=== PATIENT | female | born 1970 | race African-American/Black ===

== ENCOUNTER 2016-11-25 12:52 | Emergency (ER) | payer OTHER ==
[~2016-11-25] VITALS: Ht 157.5 cm; Wt 85.0 kg
[~2016-11-25 12:52] MED LIST: B/P MED; CYCL5TAB PO; LISI-363 PO; NAPR220T95 PO; TRAM100T19 PO
[2016-11-25 13:01] VITALS: BP 131/76; PULSE 90; RESP 17; TEMP 97.8; O2SAT 100
--- NOTE | 2016-11-25 13:01 | PD ---
HPI Chief Complaint: Dizziness Time Seen by Provider: 13:01 Travel History International Travel<30 days: No Contact w/Intl Traveler<30days: No Traveled to known affect area: No History of Present Illness HPI 46-year-old female with PMH of HTN, vertigo presents to the ED for evaluation of approximately one hour history of dizziness with nausea and vomiting. The patient states that she was feeling well before this episode. She was doing chores around the house when she suddenly began to feel dizzy, as if the room was spinning. She denies fevers, chills, headache, chest pain, palpitations, shortness of breath, abdominal pain, dysuria, weakness of the extremities. She took a shower in an attempt to reduce her symptoms but was unsuccessful. She states that she took 25 mg meclizine approximately 20 minutes before arrival. She is followed by Dr. Roblero. [facility] Past Medical History Hypertension: Yes : 2 Para: 2 Social History Alcohol Use: No Tobacco Use: No Substance Use: No Allergies-Medications (Allergen,Severity, Reaction): Coded Allergies: No Known Allergies (Verified , 11/25/16) Reported Meds & Prescriptions Reported Meds & Active Scripts Active Flexeril (Cyclobenzaprine HCl) 5 Mg Tab 5-10 Mg PO Q8HR Reported Lisinopril 20 mg (Lisinopril) 20 Mg Tab 1 Tab PO BID Aleve (Naproxen Sodium) 220 Mg Tab 220 Mg PO BID Tramadol HCl ER (Tramadol HCl) 100 Mg Tab 50 Mg PO DAILY [B/P Med] Review of Systems Except as stated in HPI: all other systems reviewed are Neg Physical Exam Narrative GENERAL: Well-nourished, well-developed black female with her eyes closed. Somnolent but rouses to voice, follows commands. SKIN: Focused skin assessment warm/dry. HEAD: Normocephalic. EYES: No scleral icterus. No injection or drainage. Pupils are pinpoint bilaterally. EOMI. NECK: Supple, trachea midline. No JVD or lymphadenopathy. CARDIOVASCULAR: Regular rate and rhythm without murmurs, gallops, or rubs. RESPIRATORY: Breath sounds clear and equal bilaterally. No accessory muscle use. GASTROINTESTINAL: Abdomen soft, non-tender, nondistended. Active bowel sounds. MUSCULOSKELETAL: No cyanosis, or edema. NEUROLOGICAL: Awake and alert. Cranial nerves II through XII intact. Motor and sensory grossly within normal limits. Five out of 5 muscle strength in all muscle groups. Normal speech. BACK: Nontender without obvious deformity. No CVA tenderness. Data Data Last Documented VS Vital Signs Date Time Temp Pulse Resp B/P (MAP) Pulse Ox O2 Delivery O2 Flow Rate FiO2 11/25/16 16:38 70 16 124/72 (89) 100 11/25/16 16:00 Room Air 11/25/16 13:01 97.8 Orders Orders Electrocardiogram (11/25/16 13:24) Complete Blood Count With Diff (11/25/16 13:24) Comprehensive Metabolic Panel (11/25/16 13:24) Magnesium (Mg) (11/25/16 13:24) Ckmb (Isoenzyme) Profile (11/25/16:24) Troponin I (11/25/16:24) Act Partial Throm Time (Ptt) (11/25/16 13:24) Prothrombin Time / Inr (Pt) (11/25/16 13:24) Urinalysis - C+S If Indicated (11/25/16 13:24) Chest, Single Ap (11/25/16 13:24) Ecg Monitoring (11/25/16 13:24) Iv Access Insert/Monitor (11/25/16 13:24) Oximetry (11/25/16 13:24) Meclizine (Antivert) (11/25/16 13:30) Ondansetron Inj (Zofran Inj) (11/25/16 13:30) Sodium Chloride 0.9% Flush (Ns Flush) (11/25/16 13:30) Sodium Chlor 0.9% 1000 Ml Inj (Ns 1000 M (11/25/16 13:24) Ed Urine Pregnancytest Poc (11/25/16 13:24) Sodium Chlor 0.9% 1000 Ml Inj (Ns 1000 M (11/25/16 13:30) CKMB (11/25/16 13:50) CKMB% (11/25/16 13:50) Calcium Carbonate Chew (Tums Chew) (11/25/16 16:00) Ct Brain W/O Iv Contrast(Rout) (11/25/16 ) Labs Laboratory Tests Test 11/25/16 13:50 11/25/16 15:10 White Blood Count 7.4 TH/MM3 Red Blood Count 4.53 MIL/MM3 Hemoglobin 12.4 GM/DL Hematocrit 38.2 % Mean Corpuscular Volume 84.1 FL Mean Corpuscular Hemoglobin 27.4 PG Mean Corpuscular Hemoglobin Concent 32.5 % Red Cell Distribution Width 14.2 % Platelet Count 314 TH/MM3 Mean Platelet Volume 7.7 FL Neutrophils (%) (Auto) 71.2 % Lymphocytes (%) (Auto) 21.8 % Monocytes (%) (Auto) 4.6 % Eosinophils (%) (Auto) 1.8 % Basophils (%) (Auto) 0.6 % Neutrophils # (Auto) 5.3 TH/MM3 Lymphocytes # (Auto) 1.6 TH/MM3 Monocytes # (Auto) 0.3 TH/MM3 Eosinophils # (Auto) 0.1 TH/MM3 Basophils # (Auto) 0.0 TH/MM3 CBC Comment DIFF FINAL Differential Comment Prothrombin Time 10.7 SEC Prothromb Time International Ratio 1.0 RATIO Activated Partial Thromboplast Time 21.9 SEC Blood Urea Nitrogen 18 MG/DL Creatinine 1.14 MG/DL Random Glucose 147 MG/DL Total Protein 7.9 GM/DL Albumin 3.5 GM/DL Calcium Level 8.4 MG/DL Magnesium Level 2.3 MG/DL Alkaline Phosphatase 67 U/L Aspartate Amino Transf (AST/SGOT) 43 U/L Alanine Aminotransferase (ALT/SGPT) 27 U/L Total Bilirubin 0.3 MG/DL Sodium Level 138 MEQ/L Potassium Level 4.2 MEQ/L Chloride Level 107 MEQ/L Carbon Dioxide Level 22.5 MEQ/L Anion Gap 9 MEQ/L Estimat Glomerular Filtration Rate 62 ML/MIN Total Creatine Kinase 622 U/L Creatine Kinase MB 2.7 NG/ML Creatine Kinase MB % 0.4 % Troponin I LESS THAN 0.02 NG/ML Urine Color YELLOW Urine Turbidity CLEAR Urine pH 5.5 Urine Specific [place] 1.026 Urine Protein TRACE mg/dL Urine Glucose (UA) NEG mg/dL Urine Ketones NEG mg/dL Urine Occult Blood NEG Urine Nitrite NEG Urine Bilirubin NEG Urine Urobilinogen LESS THAN 2.0 MG/DL Urine Leukocyte Esterase SMALL Urine RBC LESS THAN 1 /hpf Urine WBC 8 /hpf Urine Squamous Epithelial Cells <1 /hpf Urine Bacteria RARE /hpf Urine Mucus FEW /lpf Microscopic Urinalysis Comment CULT NOT INDICATED MDM Medical Decision Making Medical Screen Exam Complete: Yes Emergency Medical Condition: Yes Differential Diagnosis Vertigo versus cardiogenic syncope versus hypertension versus CVA versus metabolic derangement versus other Narrative Course 46-year-old female with PMH of HTN, vertigo presents to the ED for evaluation of approximately one hour history of dizziness with nausea and vomiting. The patient states that she was feeling well before this episode. She was doing chores around the house when she suddenly began to feel dizzy, as if the room was spinning. She took 25 mg meclizine approximately 20 minutes before arrival. She is followed by Dr. Roblero. Vitals reviewed. On physical exam the patient is lying still with her eyes closed. She answers questions appropriately but she is making minimal effort to comply with the neurologic exam. I'm unsure if this is voluntary. IV was established. She patient was administered 1 L normal saline, Zofran, meclizine. EKG rate 68, sinus rhythm. Normal intervals. Normal axis. No acute ST changes. Reviewed by Dr. Winters. Cardiac enzymes negative 1. Chest x-ray: No acute disease. No concerning abnormalities of the CBC, coags, UA. Creatinine at baseline per record review. Mild hypocalcemia, replaced with [address] of the brain negative. On recheck the patient is sitting up in bed, looking around the room, much more interactive. She reports improvement of her symptoms. I suspect this is an episode of vertigo. Patient's encouraged to take her meclizine as prescribed, follow up with her primary care, return for worsening symptoms. She is agreeable to this plan. She is stable and discharged home. Diagnosis Primary Impression: Vertigo Additional Impression: Hypocalcemia Referrals: Primary Care Physician Patient Instructions: General Instructions, Vertigo (ED) Additional Instructions: Rest, hydrate. Return to normal, gentle activities as tolerated. Take the meclizine as its prescribed. Follow up with your primary care provider. Return to the ED for any urgent or emergent medical condition. Disposition: 01 DISCHARGE HOME Condition: Stable Ginette Scruggs Nov 25, 2016 13:01
[2016-11-25] MEDS ORDERED: SODIUM CHLOR 0.9% 1000 ML INJ 1,000 ML IV ONE ×2 (13:24→13:30)
[2016-11-25] MEDS ORDERED: SODIUM CHLORIDE 0.9% FLUSH 10 ML FLUSH IVF PRN (13:30)
[2016-11-25] MEDS ORDERED: MECLIZINE HCL 25 MG TAB PO ONE (13:30)
[2016-11-25] MEDS ORDERED: ONDANSETRON HCL 4 MG/2 ML VIAL IVP ONE (13:30)
[2016-11-25 13:45] VITALS: BP 135/81; PULSE 74; RESP 18; O2SAT 100
--- NOTE | 2016-11-25 13:51 | RADRPT ---
EXAM DATE/TIME: 11/25/2016 13:48 [facility] COMPARISON: CHEST SINGLE AP, December 20, 2015, 19:43. INDICATIONS : Syncopal episode. MEDICAL HISTORY : None. SURGICAL HISTORY : None. ENCOUNTER: Initial ACUITY: 1 day PAIN SCORE: 0/10 LOCATION: chest FINDINGS: A single view of the chest demonstrates the lungs to be symmetrically aerated without evidence of mas s, infiltrate or effusion. The cardiomediastinal contours are unremarkable. Osseous structures are intact. CONCLUSION: Normal examination. Salo Marti MD on November 25, 2016 at 13:50 Board Certified Radiologist. This report was verified electronically.
[2016-11-25 14:14] LABS: AUTOMATED NEUTROPHIL # 5.3 TH/MM3 (1.8-7.7); BASOPHIL % 0.6 % (0.0-2.0); EOSINOPHIL # 0.1 TH/MM3 (0-0.4); EOSINOPHIL % 1.8 % (0.0-4.0); HEMATOCRIT 38.2 % (35.0-46.0); HEMO FLAGS DIFF FINAL; LYMPH % 21.8 % (9.0-44.0); LYMPHOCYTE # 1.6 TH/MM3 (1.0-4.8); MEAN CELL VOLUME 84.1 FL (80.0-100.0); MEAN CORPUSCULAR HEMOGLOBIN 27.4 PG (27.0-34.0); MEAN CORPUSCULAR HGB CONC 32.5 % (32.0-36.0); MONO % 4.6 % (0.0-8.0); NEUT % 71.2 % (16.0-70.0); PLATELET COUNT 314 TH/MM3 (150-450); RED BLOOD COUNT 4.53 MIL/MM3 (4.00-5.30); RED CELL DISTRIBUTION WIDTH 14.2 % (11.6-17.2); WHITE BLOOD COUNT 7.4 TH/MM3 (4.0-11.0)
[2016-11-25 14:21] LABS: APTT (PATIENT) 21.9 SEC (24.3-30.1); PROTHROMBIN TIME - PATIENT 10.7 SEC (9.8-11.6)
[2016-11-25 15:00] LABS: ALKALINE PHOSPHATASE 67 U/L (45-117); ALT (GPT) 27 U/L (10-53); ANION GAP 9 MEQ/L (5-15); AST (GOT) 43 U/L (15-37); BICARBONATE 22.5 MEQ/L (21.0-32.0); BLOOD UREA NITROGEN 18 MG/DL (7-18); CHLORIDE 107 MEQ/L (98-107); CREATINE KINASE 622 U/L (26-192); GLOMERULAR FILTRATION RATE 62 ML/MIN (>89); MAGNESIUM 2.3 MG/DL (1.5-2.5); SODIUM (NA) 138 MEQ/L (136-145); TOTAL BILIRUBIN ADULT 0.3 MG/DL (0.2-1.0)
[2016-11-25 15:01] LABS: POTASSIUM 4.2 MEQ/L (3.5-5.1)
[2016-11-25 15:14] LABS: CKMB 2.7 NG/ML (0.5-3.6)
[2016-11-25 15:39] LABS: BACTERIA, URINE RARE /hpf; BLOOD, URINE NEG (NEG); GLUCOSE,URINE NEG (NEG); KETONE, URINE NEG (NEG); MUCUS URINE FEW /lpf (OCC); NITRITE,URINE NEG (NEG); PH, URINE 5.5 (5.0-8.5); SQUAMOUS EPITHELIAL CELL URINE <1 /hpf (0-5); URINE COLOR YELLOW (YELLW/STRAW)
[2016-11-25 15:40] LABS: COMMENT (UR) CULT NOT INDICATED; CULTURE IF INDICATED CULT NOT INDICATED
[2016-11-25 16:00] VITALS: BP 118/73; PULSE 74; RESP 16; O2SAT 100
[2016-11-25] MEDS ORDERED: CALCIUM CARBONATE 500 MG CHEWABLE TAB CHEW ONE (16:00)
--- NOTE | 2016-11-25 16:01 | PD ---
Physical Exam Narrative I, Dr. Winters, have reviewed the advance practice practitioner's documentation and am in agreement, met with the patient face to face, made the diagnosis, and the medical decision making was done by me. *My assessment and Findings: Vertigo vs. dehydration 46yo F with PMH of HTN and vertigo here with c/o sudden onset room spinning, nausea, episode of NBNB vomiting, when she was bending down. Pt states it is worst with head movement. Pt given meclizine, NS IVF, and zofran. Pt reevaluated at bedside and feels better. No focal neurologic deficits. No longer nauseous. Labs reviewed, no leukocytosis. Creatinine 1.14, at baseline. CPK mildly elevated at 622. Pt given NS IVF and tolerating PO. Troponin negative. AST mildly elevated, no abdominal tenderness on exam. UA negative. Return precautions given. Data Data Last Documented VS Vital Signs Date Time Temp Pulse Resp B/P (MAP) Pulse Ox O2 Delivery O2 Flow Rate FiO2 11/25/16 16:38 70 16 124/72 (89) 100 11/25/16 16:00 Room Air 11/25/16 13:01 97.8 Orders Orders Electrocardiogram (11/25/16 13:24) Complete Blood Count With Diff (11/25/16 13:24) Comprehensive Metabolic Panel (11/25/16 13:24) Magnesium (Mg) (11/25/16 13:24) Ckmb (Isoenzyme) Profile (11/25/16 13:24) Troponin I (11/25/16 13:24) Act Partial Throm Time (Ptt) (11/25/16 13:24) Prothrombin Time / Inr (Pt) (11/25/16 13:24) Urinalysis - C+S If Indicated (11/25/16 13:24) Chest, Single Ap (11/25/16 13:24) Ecg Monitoring (11/25/16 13:24) Iv Access Insert/Monitor (11/25/16 13:24) Oximetry (11/25/16 13:24) Meclizine (Antivert) (11/25/16 13:30) Ondansetron Inj (Zofran Inj) (11/25/16 13:30) Sodium Chloride 0.9% Flush (Ns Flush) (11/25/16 13:30) Sodium Chlor 0.9% 1000 Ml Inj (Ns 1000 M (11/25/16 13:24) Ed Urine Pregnancytest Poc (11/25/16 13:24) Sodium Chlor 0.9% 1000 Ml Inj (Ns 1000 M (11/25/16 13:30) CKMB (11/25/16 13:50) CKMB% (11/25/16 13:50) Calcium Carbonate Chew (Tums Chew) (11/25/16 16:00) Ct Brain W/O Iv Contrast(Rout) (11/25/16 ) Labs Laboratory Tests Test 11/25/16 13:50 11/25/16 15:10 White Blood Count 7.4 TH/MM3 Red Blood Count 4.53 MIL/MM3 Hemoglobin 12.4 GM/DL Hematocrit 38.2 % Mean Corpuscular Volume 84.1 FL Mean Corpuscular Hemoglobin 27.4 PG Mean Corpuscular Hemoglobin Concent 32.5 % Red Cell Distribution Width 14.2 % Platelet Count 314 TH/MM3 Mean Platelet Volume 7.7 FL Neutrophils (%) (Auto) 71.2 % Lymphocytes (%) (Auto) 21.8 % Monocytes (%) (Auto) 4.6 % Eosinophils (%) (Auto) 1.8 % Basophils (%) (Auto) 0.6 % Neutrophils # (Auto) 5.3 TH/MM3 Lymphocytes # (Auto) 1.6 TH/MM3 Monocytes # (Auto) 0.3 TH/MM3 Eosinophils # (Auto) 0.1 TH/MM3 Basophils # (Auto) 0.0 TH/MM3 CBC Comment DIFF FINAL Differential Comment Prothrombin Time 10.7 SEC Prothromb Time International Ratio 1.0 RATIO Activated Partial Thromboplast Time 21.9 SEC Blood Urea Nitrogen 18 MG/DL Creatinine 1.14 MG/DL Random Glucose 147 MG/DL Total Protein 7.9 GM/DL Albumin 3.5 GM/DL Calcium Level 8.4 MG/DL Magnesium Level 2.3 MG/DL Alkaline Phosphatase 67 U/L Aspartate Amino Transf (AST/SGOT) 43 U/L Alanine Aminotransferase (ALT/SGPT) 27 U/L Total Bilirubin 0.3 MG/DL Sodium Level 138 MEQ/L Potassium Level 4.2 MEQ/L Chloride Level 107 MEQ/L Carbon Dioxide Level 22.5 MEQ/L Anion Gap 9 MEQ/L Estimat Glomerular Filtration Rate 62 ML/MIN Total Creatine Kinase 622 U/L Creatine Kinase MB 2.7 NG/ML Creatine Kinase MB % 0.4 % Troponin I LESS THAN 0.02 NG/ML Urine Color YELLOW Urine Turbidity CLEAR Urine pH 5.5 Urine Specific [place] 1.026 Urine Protein TRACE mg/dL Urine Glucose (UA) NEG mg/dL Urine Ketones NEG mg/dL Urine Occult Blood NEG Urine Nitrite NEG Urine Bilirubin NEG Urine Urobilinogen LESS THAN 2.0 MG/DL Urine Leukocyte Esterase SMALL Urine RBC LESS THAN 1 /hpf Urine WBC 8 /hpf Urine Squamous Epithelial Cells <1 /hpf Urine Bacteria RARE /hpf Urine Mucus FEW /lpf Microscopic Urinalysis Comment CULT NOT INDICATED MDM Supervised Visit with KATE: Yes Diagnosis Primary Impression: Vertigo Lo Winters DO Nov 25, 2016 16:00
--- NOTE | 2016-11-25 16:21 | RADRPT ---
EXAM DATE/TIME: 11/25/2016 16:02 [facility] COMPARISON: No previous studies available for comparison. INDICATIONS : Dizziness. RADIATION DOSE: 34.15 CTDIvol (mGy) MEDICAL HISTORY : Hypertension. SURGICAL HISTORY : None. ENCOUNTER: Initial ACUITY: 1 day PAIN SCALE: 0/10 LOCATION: cranial TECHNIQUE: Multiple contiguous axial images were obtained of the head. Using automated exposure control and adj ustment of the mA and/or kV according to patient size, radiation dose was kept as low as reasonably a chievable to obtain optimal diagnostic quality images. DICOM format image data is available electro nically for review and comparison. FINDINGS: CEREBRUM: The ventricles are normal for age. No evidence of midline shift, mass lesion, hemorrhage or acute in farction. No extra-axial fluid collections are seen. POSTERIOR FOSSA: The cerebellum and brainstem are intact. The 4th ventricle is midline. The cerebellopontine angle i s unremarkable. EXTRACRANIAL: The visualized portion of the orbits is intact. SKULL: The calvaria is intact. No evidence of skull fracture. CONCLUSION: Negative noncontrast head CT. Salo Linder MD on November 25, 2016 at 16:19 Board Certified Radiologist. This report was verified electronically.
[2016-11-25 16:38] VITALS: BP 124/72
--- NOTE | 2016-11-26 12:58 | EKG ---
Date Performed: 11/25/2016 Time Performed: 14:27:26 PTAGE: 46 years EKG: Sinus rhythm NORMAL ECG PREVIOUS TRACING : 12/20/2015 19.24 No significant change from previous tracing noted. DOCTOR: Sha Montiel Interpretating Date/Time 11/26/2016 12:56:48
== END 2016-11-25 17:29 | disposition home or self-care (01) ==
LOC: NEPE 12:52
DX: R42 Dizziness and giddiness (principal); E83.51 Hypocalcemia; R11.2 Nausea with vomiting, unspecified; I10 Essential (primary) hypertension
CPT/HCPCS: 70450; 71010; 80053; 81001; 82550; 82552; 83735; 84484; 84703; 85025; 85610; 85730; 93005; 96361; 96374; 99285; J2405; J7030